=== PATIENT | female | born 1965 | race Caucasian/White ===

== ENCOUNTER 2016-10-20 19:26 | Emergency (ER) | payer OTHER ==
[~2016-10-20] VITALS: Ht 160 cm; Wt 74.5 kg
[~2016-10-20 19:26] MED LIST: ALBU8.5H3 INH; CODE118S PO; PRED20TA PO
[2016-10-20 19:29] VITALS: Ht 160 cm; Wt 74.5 kg
[2016-10-20] MEDS ORDERED: HYDROCODONE/APAP (5/325) TAB PO ONE (21:00)
--- NOTE | 2016-10-20 21:40 | RADRPT ---
PROCEDURE: X-ray lumbar spine CLINICAL INDICATION: Back injury after heavy lifting TECHNIQUE: 3 views lumbar spine COMPARISON: None FINDINGS: Mild curvature of the lower lumbar spine convex to the left.. This may be secondary to muscular spa sm setting of back pain. Small anterior endplate osteophytes seen at the L3-L5 levels. Disk spaces are otherwise preserved. No acute fracture or dislocation. Mild posterior facet degenerative change is likely present at th e L5-S1 level. IMPRESSION: No acute fracture. RPTAT: [facility] Physician Gio Date Time Electronically viewed and signed by Alan Hernández Physician on 10/20/2016 21:40 RS/
[2016-10-20] MEDS ORDERED: TRAM50TA2 PO (22:11)
--- NOTE | 2016-10-20 23:13 | ERD ---
ER Documentation Chief Complaint Date/Time DATE: 10/20/16 TIME: 23:11 Chief Complaint back pain x 2 days, denies injury HPI 51-year-old female with no significant past medical history presents to the ED complaining of back pain that occurred yesterday. 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 Patient describes the pain as strong and rates it a 9 out of 10. States that she tried taking ibuprofen but it did not relieve her pain. Reports that this is the same pain that occurred 1 year ago. States that when she breathes in and out it hurts her back. Denies any chest pain, shortness breath, wheezing, fever, chills, cough. Denies any saddle anesthesia, fever, numbness or tingling , urinary retention, urine or bowel incontinence. ROS All systems reviewed and are negative except as per history of present illness. Medications Home Meds Active Scripts Tramadol HCl (Tramadol HCl) 50 Mg Tablet, 50 MG PO Q4 Y for PAIN, #20 TAB Prov:DESTINY ESTRELLA PA-C 10/20/16 Prednisone (Prednisone) 20 Mg Tablet, 40 MG PO DAILY, #3 TAB Prov:MEGHAN POON DO 05/21/15 Promethazine w/Codeine (Phenergan w/Codeine Syrup) 120 Ml Syrup, 10 ML PO Q8 Y for COUGH, #120 ML Prov:MEGHAN POON DO 05/21/15 Albuterol Sulfate* (Proair HFA*) 8.5 Gm Hfa.aer.ad, 2 PUFF INH Q4H Y for WHEEZING AND SOB, #1 INHALER Prov:MEGHAN POON DO 05/21/15 Allergies Allergies: Coded Allergies: No Known Allergy (Unverified , 05/21/15) PMhx/Soc History of Surgery: Yes (C SECTION) Anesthesia Reaction: No Hx Neurological Disorder: No Hx Respiratory Disorders: No Hx Cardiac Disorders: No Hx Psychiatric Problems: No Hx Miscellaneous Medical Probl: Yes (chronic back pain) Hx Alcohol Use: No Hx Substance Use: No Hx Tobacco Use: No Smoking Status: Never smoker Physical Exam Vitals Vital Signs Date Time Temp Pulse Resp B/P Pulse Ox O2 Delivery O2 Flow Rate FiO2 10/20/16 19:29 98.6 64 20 133/63 100 Physical Exam Const: [id number], well-nourished. In no acute distress. Head: Atraumatic, normocephalic Eyes: Normal Conjunctiva without injection. No purulent discharge. ENT: Normal external ear, nose. Moist oropharynx without tonsillar exudates. Non -erythematous pharynx. Uvula midline. No drooling. No trismus. Neck: No cervical midline tenderness. Full range of motion. No meningismus. No cervical lymphadenopathy. No JVD. Resp: Clear to auscultation bilaterally. No wheezing, rhonchi, rales, or crackles. No accessory muscle use. No retractions. Cardio: Regular rate and rhythm. No murmurs, rubs or gallops. Abd: Soft, nontender non distended. Normal bowel sounds. No palpable masses. No rebound tenderness. No guarding. Negative McBurney's point. Negative psoas sign. Negative obturator sign. Skin: No petechiae or rashes Back: Slight L5 midline tenderness. Tenderness palpation of the left and right lumbar muscles. No CVA tenderness. Ext: No cyanosis, or edema. Neur: Awake and alert. Normal gait. Normal coordination. Psych: Normal Mood and Affect Results 24 hrs Current Medications Medications (Trade) Dose Ordered Sig/Shobha Route PRN Reason Start Time Stop Time Status Last Admin Dose Admin Acetaminophen/ Hydrocodone Bitart ([place] (5/325)) 1 tab ONCE ONCE PO 10/20/16 21:00 10/20/16 21:01 DC 10/20/16 20:50 Procedures/MDM This is a 51-year-old female patient with no significant past medical history presents to the ED complaining of a possible back injury due to heavy lifting. Patient is afebrile nontoxic appearing. Patient has normal vital signs. A lumbar x-ray was ordered to further evaluate patient. Patient was given [place] here in the ED with improvement of her pain. PROCEDURE: X-ray lumbar spine CLINICAL INDICATION: Back injury after heavy lifting TECHNIQUE: 3 views lumbar spine COMPARISON: None FINDINGS: Mild curvature of the lower lumbar spine convex to the left.. This may be secondary to muscular spasm setting of back pain. Small anterior endplate osteophytes seen at the L3-L5 levels. Disk spaces are otherwise preserved. No acute fracture or dislocation. Mild posterior facet degenerative change is likely present at the L5-S1 level. IMPRESSION: No acute fracture. Patient likely sustained a lumbar strain. Patient is ambulating here in the ED without difficulty. Denies saddle anesthesia, numbness or tingling, urine or bowel incontinence, weakness. Low suspicion for cauda equina syndrome, cord compression, nephrolithiasis, aortic aneurysm, aortic dissection, epidural abscess, spinal hematoma, malignancy, pyelonephritis, or other emergent conditions. Discharge medications: Tramadol Follow up with primary care physician in 1-2 days. Instructed patient to return to the ED sooner for any worsening symptoms. No driving or operate any heavy machinery while taking tramadol. Patient's questions were answered. Patient understood and agreed with discharge plan. Patient discharged stable. Departure Diagnosis: Primary Impression: Back pain Back pain location: back pain in unspecified location Chronicity: unspecified Back pain laterality: left Qualified Code: M54.9 - Left-sided back pain, unspecified back location, unspecified chronicity Condition: Stable Patient Instructions: Back Pain (Acute Or Chronic) Referrals: [facility] YOU HAVE RECEIVED A MEDICAL SCREENING EXAM AND THE RESULTS INDICATE THAT YOU DO NOT HAVE A CONDITION THAT REQUIRES URGENT TREATMENT IN THE EMERGENCY DEPARTMENT. FURTHER EVALUATION AND TREATMENT OF YOUR CONDITION CAN WAIT UNTIL YOU ARE SEEN IN YOUR DOCTORS OFFICE WITHIN THE NEXT 1-2 DAYS. IT IS YOUR RESPONSIBILITY TO MAKE AN APPOINTMENT FOR FOLOW-UP CARE. IF YOU HAVE A PRIMARY DOCTOR --you should call your primary doctor and schedule an appointment IF YOU DO NOT HAVE A PRIMARY DOCTOR YOU CAN CALL OUR PHYSICIAN REFERRAL HOTLINE AT IF YOU CAN NOT AFFORD TO SEE A PHYSICIAN YOU CAN CHOSE FROM THE FOLLOWING ON LICENSE OF [facility] CLINICS [facility] [address] [facility]. [facility] [address] [facility]. [facility] [address] [facility] [facility] [address] [facility] [facility] [address] [facility]. [facility]. [address] [facility]. [facility] YOU HAVE RECEIVED A MEDICAL SCREENING EXAM AND THE RESULTS INDICATE THAT YOU DO NOT HAVE A CONDITION THAT REQUIRES URGENT TREATMENT IN THE EMERGENCY DEPARTMENT. FURTHER EVALUATION AND TREATMENT OF YOUR CONDITION CAN WAIT UNTIL YOU ARE SEEN IN YOUR DOCTORS OFFICE WITHIN THE NEXT 1-2 DAYS. IT IS YOUR RESPONSIBILITY TO MAKE AN APPOINTMENT FOR FOLOW-UP CARE. IF YOU HAVE A PRIMARY DOCTOR --you should call your primary doctor and schedule and appointment IF YOU DO NOT HAVE A PRIMARY DOCTOR YOU CAN CALL OUR PHYSICIAN REFERRAL HOTLINE AT . IF YOU CAN NOT AFFORD TO SEE A PHYSICIAN YOU CAN CHOSE FROM THE FOLLOWING [facility] INSTITUTIONS: [facility] [address] [place] [address] [facility] [address] [place] [address] LOCATED WITHIN [facility] + [facility] [address] [place] [address] [facility] URGENT CARE/SPECIALTIES Additional Instructions: Llame al doctor MAANA y chelsea siddharth CHRISTA PARA DENTRO DE 1-2 CURRY.Dgale a la secretaria que nosotros le instruimos hacer esta christa.Avise o llame si vernon condicin se empeora antes de la christa. Regresa aqui si peor o no mejor. La medicina que se le recet puede causarle sueo.NO DEBE MANEJAR NI OPERAR MAQUINARIAS PELIGROSAS mientras esta tomando esta medicina! DESTINY ESTRELLA PA-C Oct 20, 2016 23:13 DESTINY ESTRELLA PA-C Oct 20, 2016 23:13
== END 2016-10-20 22:11 | disposition home or self-care (01) ==
LOC: FTE 19:26
DX: M54.5 Low back pain (principal)
CPT/HCPCS: 72100